=== PATIENT | male | born 1980 | race Caucasian/White ===

== ENCOUNTER 2017-01-15 11:49 | Emergency (ER) | payer BC ==
[2017-01-15 12:10] VITALS: BP 115/62
--- NOTE | 2017-01-16 07:48 | ER ---
Date of Service: 01/15/2017 SUBJECTIVE: The patient presents to the ER with complaints of right ankle pain. The patient states he was "catching riders" [place] the [employer] [place] and in the process of doing this, twisted his right ankle. He states that he is experiencing discomfort to the lateral aspect of his right ankle. He denies any trauma other than what is isolated to his right ankle. PAST MEDICAL HISTORY: Anxiety. MEDICATIONS: Lamotrigine. ALLERGIES: NKDA. REVIEW OF SYSTEMS: General: No trauma other than what is was isolated to his right ankle. He denies any numbness or tingling in the distal portion of the extremity. PHYSICAL EXAMINATION: General: This is a 36-year-old male patient, who is in no acute distress. Vital Signs: Heart rate is 101, temperature is 36.4, blood pressure is 115/62, respiratory rate 16, O2 saturations 96%. Skin: Warm, pink, and dry. Musculoskeletal: He has significant area of swelling to the lateral aspect of his right ankle. No significant ecchymosis noted. His drawer test is negative. No crepitus or deformity noted. Neurovascular: Circulation, sensation, motor function all within normal limits in distal portion of the extremity. RADIOGRAPHIC DATA: Right ankle x-ray was obtained. There was no evidence of any acute fracture or dislocation. ASSESSMENT: Right ankle sprain. PLAN: The patient will be discharged. Tylenol, ibuprofen for discomfort. Use Jamey wrap. Ice the area for 10 to 15 minutes every 1 to 2 hours. All questions were answered. MWK: 01/15/2017 13:27:28 MODL: 01/15/2017 14:46:57 /[id number]
== END 2017-01-15 13:24 | disposition home or self-care (01) ==
LOC: VM.ED 11:49
DX: S93.401A Sprain of unspecified ligament of right ankle, initial encounter (principal); X50.1XXA Overexertion from prolonged static or awkward postures, initial encounter
CPT/HCPCS: 73600-RT; 99283